=== PATIENT | female | born 1945 | race African-American/Black ===

== ENCOUNTER 2019-02-24 12:12 | Observation (INO) ==
[2019-02-24] MEDS ORDERED: amLODIPine 5 MG TABLET PO STA (12:58)
[2019-02-24 13:52] LABS: Basophils # 0.1 10*3/uL (0.0-0.2); Basophils % 0.8 % (0.0-0.8); Eosinophils # 0.2 10*3/uL (0.0-0.87); Eosinophils % 3.8 % (0.00-10.9); Hematocrit 43.2 VOL% (35.7-47.0); Hemoglobin 13.5 GM/DL (12.0-16.0); Immature Granulocytes % 0.2 %; Immature Granulocytes Absolute 0.01 #; Lymphocytes # 1.5 10*3/uL (1.4-4.0); Mean Corpuscular HGB Conc 31.3 GM/DL (32-36); Mean Corpuscular Volume 88.3 FL (87-102); Mean Platelet Volume 9.2 FL (9.6-12.0); Monocytes % 10.5 % (1.7-12.7); Neutrophils % 59.7 % (38.7-73.9); Platelet Count 288 T/CUMM (130-400); Red Blood Count 4.89 MC/CUMM (3.8-5.5); Red Cell Distribution Width 15.4 % (9.3-17.3); White Blood Count 6.1 T/CUMM (4-12)
[2019-02-24 14:15] LABS: Calcium 9.4 MG/DL (8.5-10.1); Osmolality,Calculated 276.4 MOS/KG (273-304)
[2019-02-24 14:27] LABS: Apearance,Urine CLEAR (Clear); Bilirubin,Urine Negative (Negative); Blood, Urine Small mg/dL (Negative); Glucose,Urine (UA) Negative (Negative); Ketones,Urine Negative (Negative); Nitrite,Urine Negative (Negative); Protein,Urine Negative; RBC,Urine 1 /HPF (0-4); Squamous Epithelial Cell,Urine Occasional /HPF (0-10); Urine Color Colorless (Yellow); Urine Specific Gravity 1.003 (1.001-1.035); Urine Urobilinogen < 2.0 EU/DL (0.2-1.0); WBC,Urine <1 /HPF (0-6)
[2019-02-24 14:55] LABS: Sedimentation Rate-Westergren 40 MM/HR (0-30)
[2019-02-24] MEDS ORDERED: LACTULOSE 20 GM/30 ML UDCUP PO PRN (16:46)
[2019-02-24] MEDS ORDERED: ONDANSETRON 4 MG/2 ML VIAL IV PRN (16:46)
[2019-02-24] MEDS ORDERED: ACETAMINOPHEN 325 MG TABLET PO PRN ×2 (16:46→17:03)
[2019-02-24] MEDS ORDERED: DOCUSATE SODIUM 100 MG CAPSULE PO PRN (16:46)
[2019-02-24 17:22] LABS: Risk Ratio 3.36; Thyroid Stimulating Hormone 0.674 uIU/ml (0.358-3.74); VLDL CHOLESTEROL 20.8 MG/DL
[2019-02-24] MEDS ORDERED: ENOXAPARIN 40 MG/0.4 ML SYRINGE SUBCUT SCH (17:30)
[2019-02-24] MEDS ORDERED: hydrALAZINE 20 MG/1 ML VIAL IV PRN (18:45)
[2019-02-24] MEDS: amLODIPine 5 MG TABLET PO SCH (21:04)
[2019-02-24 21:12] LABS: Troponin I 0.039 NG/ML (0.00-0.045)
[2019-02-25 06:04] LABS: Basophils # 0.1 10*3/uL (0.0-0.2); Basophils % 0.9 % (0.0-0.8); Eosinophils # 0.2 10*3/uL (0.0-0.87); Eosinophils % 3.7 % (0.00-10.9); Hematocrit 42.2 VOL% (35.7-47.0); Hemoglobin 13.4 GM/DL (12.0-16.0); Immature Granulocytes % 0.2 %; Immature Granulocytes Absolute 0.01 #; Lymphocytes % 31.2 % (21.3-54.2); Mean Corpuscular HGB Conc 31.8 GM/DL (32-36); Mean Corpuscular Volume 87.9 FL (87-102); Mean Platelet Volume 9.9 FL (9.6-12.0); Monocytes % 10.2 % (1.7-12.7); Neutrophils % 53.8 % (38.7-73.9); Platelet Count 298 T/CUMM (130-400); Red Cell Distribution Width 15.3 % (9.3-17.3); White Blood Count 6.4 T/CUMM (4-12)
[2019-02-25 06:16] LABS: Calcium 9.6 MG/DL (8.5-10.1); Osmolality,Calculated 282.1 MOS/KG (273-304)
[2019-02-25 06:20] LABS: Troponin I 0.025 NG/ML (0.00-0.045)
[2019-02-25] MEDS ORDERED: CHOLECALCIFEROL 400 UNIT TABLET PO SCH (09:00)
[2019-02-25] MEDS ORDERED: ASPIRIN EC 81 MG TABLET PO SCH (09:00)
[2019-02-25] MEDS ORDERED: TELMISARTAN 40 MG TABLET PO SCH ×2 (09:00→15:00)
[2019-02-25] MEDS ORDERED: PANTOPRAZOLE 40 MG TABLET PO SCH (09:00)
[2019-02-25] MEDS: amLODIPine 5 MG TABLET PO SCH (09:49)
[2019-02-25 17:04] VITALS: BP 154/71
== END 2019-02-25 16:55 | disposition home or self-care (01) ==
LOC: N.EDINP 12:12 → N.ED 12:12 → N.TELES 17:36
PROVIDERS: ADMIT Internal Medicine; ATTEND Internal Medicine

== ENCOUNTER 2020-09-18 00:46 | Observation (INO) ==
[2020-09-18 01:09] LABS: Basophils % 0.4 % (0.0-0.8); Eosinophils # 0.3 10*3/uL (0.0-0.87); Eosinophils % 3.3 % (0.00-10.9); Immature Granulocytes % 0.3 %; Immature Granulocytes Absolute 0.02 #; Lymphocytes # 2.4 10*3/uL (1.4-4.0); Lymphocytes % 30.9 % (21.3-54.2); Mean Corpuscular HGB Conc 33.3 GM/DL (32-36); Mean Corpuscular Volume 86.1 FL (87-102); Mean Platelet Volume 8.7 FL (9.6-12.0); Monocytes % 13.2 % (1.7-12.7); Neutrophils % 51.9 % (38.7-73.9); Platelet Count 276 T/CUMM (130-400); Red Blood Count 4.53 MC/CUMM (3.8-5.5); Red Cell Distribution Width 14.4 % (9.3-17.3); White Blood Count 7.7 T/CUMM (4-12)
[2020-09-18 01:35] LABS: Albumin 3.7 G/DL (3.4-5.0); Bilirubin,Total 0.6 MG/DL (0.2-1.0); Calcium 9.8 MG/DL (8.5-10.1); Total Protein 7.5 G/DL (6.4-8.3)
[2020-09-18] MEDS ORDERED: NITROGLYCERIN 2% OINT 1 INCH/GM PACK TOP STA (01:46)
[2020-09-18] MEDS ORDERED: ONDANSETRON 4 MG/2 ML VIAL IV STA (01:46)
[2020-09-18] MEDS ORDERED: ASPIRIN 325 MG TABLET PO STA (01:46)
[2020-09-18] MEDS ORDERED: ALUM/MAG/SIMETH/LIDO VISC 1:1 30 ML BOTTLE PO STA (01:46)
[2020-09-18] MEDS ORDERED: MORPHINE 4 MG/1 ML VIAL IV STA (01:46)
[2020-09-18 02:34] LABS: PT Patient Result 10.5 SECS (9.8-11.9)
[2020-09-18] MEDS ORDERED: SODIUM CHLORIDE 0.9% 1,000 ML IV STA (03:18)
[2020-09-18] MEDS ORDERED: SODIUM BICARBONATE 50 MEQ/50 ML VIAL IV STA (03:18)
[2020-09-18] MEDS ORDERED: ENOXAPARIN 100 MG/ML SYRINGE SUBCUT STA (05:08)
[2020-09-18] MEDS ORDERED: MORPHINE 4 MG/1 ML VIAL IV PRN (05:09)
[2020-09-18] MEDS ORDERED: DEXTROSE 50% 25 GM/50 ML VIAL IV PRN (05:09)
[2020-09-18] MEDS ORDERED: GLUCAGON 1 MG VIAL IM PRN (05:09)
[2020-09-18] MEDS ORDERED: DEXTROSE 50% 25 GM/50 ML SYRINGE IV PRN (05:24)
[2020-09-18 09:35] LABS: Risk Ratio 2.47; VLDL CHOLESTEROL 8.6 MG/DL
[2020-09-18] MEDS: PANTOPRAZOLE 40 MG TABLET PO SCH (09:55)
[2020-09-18] MEDS ORDERED: ENOXAPARIN 100 MG/ML SYRINGE SUBCUT SCH (17:00)
[2020-09-18] MEDS: ESCITALOPRAM 10 MG TABLET PO SCH (20:33)
[2020-09-19] MEDS ORDERED: hydrALAZINE 20 MG/1 ML VIAL IV ONE (00:10)
[2020-09-19] MEDS: ONDANSETRON 4 MG/2 ML VIAL IV PRN ×2 (01:29→18:56)
[2020-09-19] MEDS ORDERED: cloNIDine 0.2 MG/24 HR PATCH TRANSDERM PRN (03:55)
[2020-09-19 05:37] LABS: Basophils # 0.1 10*3/uL (0.0-0.2); Eosinophils # 0.1 10*3/uL (0.0-0.87); Hematocrit 35.7 VOL% (35.7-47.0); Hemoglobin 11.7 GM/DL (12.0-16.0); Immature Granulocytes % 0.1 %; Immature Granulocytes Absolute 0.01 #; Lymphocytes % 13.8 % (21.3-54.2); Mean Corpuscular HGB Conc 32.8 GM/DL (32-36); Mean Corpuscular Volume 85.4 FL (87-102); Mean Platelet Volume 9.1 FL (9.6-12.0); Monocytes % 9.7 % (1.7-12.7); Neutrophils % 74.4 % (38.7-73.9); Platelet Count 255 T/CUMM (130-400); Red Blood Count 4.18 MC/CUMM (3.8-5.5); Red Cell Distribution Width 14.5 % (9.3-17.3); White Blood Count 7.1 T/CUMM (4-12)
[2020-09-19 05:49] LABS: Calcium 9.1 MG/DL (8.5-10.1); Osmolality,Calculated 275.8 MOS/KG (273-304)
[2020-09-19] MEDS: PANTOPRAZOLE 40 MG TABLET PO SCH (10:05)
[2020-09-19] MEDS: SIMVASTATIN 10 MG TABLET PO SCH (10:05)
[2020-09-19] MEDS: ASPIRIN EC 81 MG TABLET PO SCH (10:05)
[2020-09-19] MEDS: minoxidiL 2.5 MG TABLET PO SCH (10:05)
[2020-09-19] MEDS: ENOXAPARIN 40 MG/0.4 ML SYRINGE SUBCUT SCH (10:05)
[2020-09-19] MEDS: ESCITALOPRAM 10 MG TABLET PO SCH (21:09)
[2020-09-20 06:57] LABS: Basophils # 0.1 10*3/uL (0.0-0.2); Basophils % 0.9 % (0.0-0.8); Eosinophils # 0.1 10*3/uL (0.0-0.87); Eosinophils % 1.9 % (0.00-10.9); Hematocrit 33.8 VOL% (35.7-47.0); Hemoglobin 11.4 GM/DL (12.0-16.0); Immature Granulocytes % 0.3 %; Immature Granulocytes Absolute 0.02 #; Lymphocytes # 1.3 10*3/uL (1.4-4.0); Lymphocytes % 18.5 % (21.3-54.2); Mean Corpuscular HGB Conc 33.7 GM/DL (32-36); Mean Corpuscular Volume 86.2 FL (87-102); Mean Platelet Volume 9.5 FL (9.6-12.0); Monocytes % 11.2 % (1.7-12.7); Neutrophils % 67.2 % (38.7-73.9); Platelet Count 267 T/CUMM (130-400); Red Blood Count 3.92 MC/CUMM (3.8-5.5); Red Cell Distribution Width 14.9 % (9.3-17.3); White Blood Count 6.9 T/CUMM (4-12)
[2020-09-20 07:28] LABS: Osmolality,Calculated 269.2 MOS/KG (273-304)
[2020-09-20 08:00] VITALS: BP 145/49
[2020-09-20] MEDS ORDERED: LACTULOSE 20 GM/30 ML UDCUP PO ONE (08:02)
[2020-09-20] MEDS ORDERED: ACETAMINOPHEN 325 MG TABLET PO PRN (08:04)
[2020-09-20] MEDS: ASPIRIN EC 81 MG TABLET PO SCH (08:44)
[2020-09-20] MEDS: SIMVASTATIN 10 MG TABLET PO SCH (08:45)
[2020-09-20] MEDS: PANTOPRAZOLE 40 MG TABLET PO SCH (08:45)
[2020-09-20] MEDS: minoxidiL 2.5 MG TABLET PO SCH (08:45)
[2020-09-20] MEDS: ENOXAPARIN 40 MG/0.4 ML SYRINGE SUBCUT SCH (08:46)
== END 2020-09-20 11:38 | disposition home or self-care (01) ==
LOC: N.EDINP 00:46 → N.ED 00:46 → N.EDINP 12:16 → N.TELEN 12:31
PROVIDERS: ADMIT Internal Medicine; ATTEND Internal Medicine

== ENCOUNTER 2021-03-20 07:56 | Observation (INO) ==
[2021-03-20 08:46] LABS: Basophils # 0.1 10*3/uL (0.0-0.2); Eosinophils # 0.2 10*3/uL (0.0-0.87); Eosinophils % 2.6 % (0.00-10.9); Hematocrit 43.8 VOL% (35.7-47.0); Hemoglobin 14.4 GM/DL (12.0-16.0); Immature Granulocytes % 0.2 %; Immature Granulocytes Absolute 0.01 #; Lymphocytes # 1.7 10*3/uL (1.4-4.0); Lymphocytes % 27.5 % (21.3-54.2); Mean Corpuscular HGB Conc 32.9 GM/DL (32-36); Mean Corpuscular Volume 84.6 FL (87-102); Mean Platelet Volume 9.6 FL (9.6-12.0); Monocytes % 10.4 % (1.7-12.7); Neutrophils % 58.3 % (38.7-73.9); Platelet Count 321 T/CUMM (130-400); Red Blood Count 5.18 MC/CUMM (3.8-5.5); Red Cell Distribution Width 16.2 % (9.3-17.3); White Blood Count 6.2 T/CUMM (4-12)
[2021-03-20] MEDS ORDERED: ASPIRIN CHEW 81 MG TABLET PO STA (08:48)
[2021-03-20] MEDS ORDERED: ONDANSETRON 4 MG/2 ML VIAL IV STA (08:48)
[2021-03-20] MEDS ORDERED: MORPHINE 4 MG/1 ML VIAL IV STA (08:48)
[2021-03-20] MEDS ORDERED: hydrALAZINE 20 MG/1 ML VIAL IV STA (08:49)
[2021-03-20 09:02] LABS: Albumin 3.5 G/DL (3.4-5.0); Bilirubin,Total 0.6 MG/DL (0.2-1.0); Calcium 9.8 MG/DL (8.5-10.1); Osmolality,Calculated 282.3 MOS/KG (273-304); Potassium 3.6 MMOL/L (3.5-5.1); Total Protein 7.7 G/DL (6.4-8.2)
[2021-03-20 09:58] LABS: INR 1.7; PT Patient Result 18.5 SECS (10.5-12.0); Partial Thromboplastin Time 32.4 SECS (23.9-33.8)
[2021-03-20] MEDS ORDERED: hydrALAZINE 20 MG/1 ML VIAL IV ONE (11:08)
[2021-03-20] MEDS ORDERED: niCARdipine INJ 25 MG in SODIUM CHLORIDE 0.9% 240 ML IV PRN (11:13)
[2021-03-20] MEDS ORDERED: MORPHINE 4 MG/1 ML VIAL IV PRN (15:30)
[2021-03-20] MEDS ORDERED: DEXTROSE 50% 25 GM/50 ML VIAL IV PRN (15:30)
[2021-03-20] MEDS ORDERED: GLUCAGON 1 MG VIAL IM PRN (15:30)
[2021-03-20 16:10] LABS: Thyroid Stimulating Hormone 1.15 uIU/ml (0.358-3.74); VLDL CHOLESTEROL 14.6 MG/DL
[2021-03-20] MEDS: hydrALAZINE 20 MG/1 ML VIAL IV PRN (16:58)
[2021-03-20] MEDS: ACETAMINOPHEN 325 MG TABLET PO PRN (16:58)
[2021-03-20] MEDS: ENOXAPARIN 40 MG/0.4 ML SYRINGE SUBCUT SCH (17:04)
[2021-03-20] MEDS: ONDANSETRON 4 MG/2 ML VIAL IV PRN (17:56)
[2021-03-20] MEDS: ESCITALOPRAM 10 MG TABLET PO SCH (21:28)
[2021-03-21 05:21] LABS: Basophils % 0.5 % (0.0-0.8); Hematocrit 42.7 VOL% (35.7-47.0); Hemoglobin 13.5 GM/DL (12.0-16.0); Immature Granulocytes % 0.4 %; Immature Granulocytes Absolute 0.03 #; Lymphocytes # 0.9 10*3/uL (1.4-4.0); Lymphocytes % 12.6 % (21.3-54.2); Mean Corpuscular HGB Conc 31.6 GM/DL (32-36); Mean Corpuscular Volume 86.8 FL (87-102); Mean Platelet Volume 9.4 FL (9.6-12.0); Monocytes % 5.4 % (1.7-12.7); Neutrophils % 81.1 % (38.7-73.9); Platelet Count 320 T/CUMM (130-400); Red Blood Count 4.92 MC/CUMM (3.8-5.5); Red Cell Distribution Width 16.4 % (9.3-17.3); White Blood Count 7.5 T/CUMM (4-12)
[2021-03-21 05:36] LABS: Calcium 9.3 MG/DL (8.5-10.1); Osmolality,Calculated 281.3 MOS/KG (273-304); Potassium 3.6 MMOL/L (3.5-5.1)
[2021-03-21] MEDS: ONDANSETRON 4 MG/2 ML VIAL IV PRN (07:22)
[2021-03-21] MEDS: hydrALAZINE 20 MG/1 ML VIAL IV PRN (07:24)
[2021-03-21] MEDS ORDERED: PROMETHAZINE 25 MG TABLET PO PRN (08:53)
[2021-03-21] MEDS ORDERED: cloNIDine 0.2 MG/24 HR PATCH TRANSDERM SCH (09:00)
[2021-03-21] MEDS ORDERED: SIMVASTATIN 10 MG TABLET PO SCH (09:00)
[2021-03-21] MEDS: CHOLECALCIFEROL 5,000 UNIT TABLET PO SCH (10:09)
[2021-03-21] MEDS: PANTOPRAZOLE 40 MG TABLET PO SCH (10:09)
[2021-03-21] MEDS: ASPIRIN EC 81 MG TABLET PO SCH (10:10)
[2021-03-21] MEDS: minoxidiL 2.5 MG TABLET PO SCH (10:10)
[2021-03-21] MEDS: ACETAMINOPHEN 325 MG TABLET PO PRN (10:12)
[2021-03-21] MEDS ORDERED: MAGNESIUM HYDROXIDE SUSP 30 ML UDCUP PO PRN (13:54)
[2021-03-21] MEDS: ENOXAPARIN 40 MG/0.4 ML SYRINGE SUBCUT SCH (15:43)
[2021-03-21] MEDS: hydrALAZINE 25 MG TABLET PO SCH ×2 (15:43→21:13)
[2021-03-21] MEDS: POLYETHYLENE GLYCOL POWDER 17 GM PACK PO SCH (15:43)
[2021-03-21] MEDS: ESCITALOPRAM 10 MG TABLET PO SCH (21:13)
[2021-03-22 06:02] LABS: Basophils % 0.4 % (0.0-0.8); Eosinophils % 0.4 % (0.00-10.9); Hematocrit 40.9 VOL% (35.7-47.0); Hemoglobin 13.7 GM/DL (12.0-16.0); Immature Granulocytes % 0.3 %; Immature Granulocytes Absolute 0.02 #; Lymphocytes # 1.3 10*3/uL (1.4-4.0); Lymphocytes % 16.6 % (21.3-54.2); Mean Corpuscular HGB Conc 33.5 GM/DL (32-36); Mean Corpuscular Volume 83.5 FL (87-102); Mean Platelet Volume 9.7 FL (9.6-12.0); Monocytes % 8.2 % (1.7-12.7); Neutrophils % 74.1 % (38.7-73.9); Platelet Count 314 T/CUMM (130-400); Red Cell Distribution Width 16.4 % (9.3-17.3); White Blood Count 7.7 T/CUMM (4-12)
[2021-03-22 06:15] LABS: Potassium 3.6 MMOL/L (3.5-5.1)
[2021-03-22] MEDS: POLYETHYLENE GLYCOL POWDER 17 GM PACK PO SCH (10:08)
[2021-03-22] MEDS: PANTOPRAZOLE 40 MG TABLET PO SCH (10:08)
[2021-03-22] MEDS: ASPIRIN EC 81 MG TABLET PO SCH (10:09)
[2021-03-22] MEDS: hydrALAZINE 25 MG TABLET PO SCH (10:09)
[2021-03-22] MEDS: SIMVASTATIN 20 MG TABLET PO SCH (10:09)
[2021-03-22] MEDS: CHOLECALCIFEROL 5,000 UNIT TABLET PO SCH (10:09)
[2021-03-22] MEDS: minoxidiL 2.5 MG TABLET PO SCH (10:09)
[2021-03-22] MEDS ORDERED: MAGNESIUM SULF RIDER 2 GM/50 ML PREMIX IV PRN (11:57)
[2021-03-22] MEDS ORDERED: POTASSIUM CHLORIDE RIDER 10 MEQ/100 ML PREMIX IV PRN (11:57)
[2021-03-22] MEDS ORDERED: LIDOCAINE 1% 20 ML VIAL ONE (12:36)
[2021-03-22] MEDS ORDERED: HEPARIN/NACL 0.9% 2 UNITS/ML 2,000 UNIT/1,000 ML BAG IV ONE (12:36)
[2021-03-22] MEDS ORDERED: DIAZEPAM 5 MG TABLET PO ONE (13:00)
[2021-03-22] MEDS ORDERED: diphenhydrAMINE CAP 50 MG CAPSULE PO ONE (13:00)
[2021-03-22] MEDS: SODIUM CHLORIDE 0.9% 1,000 ML IV SCH ×2 (13:11→21:08)
[2021-03-22] MEDS ORDERED: MIDAZOLAM 2 MG/2 ML VIAL ONE (13:16)
[2021-03-22] MEDS ORDERED: HYDROmorphone 2 MG/1 ML VIAL ONE (13:16)
[2021-03-22] MEDS ORDERED: VERAPAMIL 5 MG/2 ML VIAL ONE (13:17)
[2021-03-22] MEDS ORDERED: ENOXAPARIN 30 MG/0.3 ML SYRINGE ONE (13:19)
[2021-03-22] MEDS ORDERED: DEXTROSE 50% 25 GM/50 ML VIAL IV PRN (13:37)
[2021-03-22] MEDS: ENOXAPARIN 40 MG/0.4 ML SYRINGE SUBCUT SCH (15:23)
[2021-03-22] MEDS: ACETAMINOPHEN 325 MG TABLET PO PRN (18:14)
[2021-03-22] MEDS: ESCITALOPRAM 10 MG TABLET PO SCH (21:05)
[2021-03-23 05:50] LABS: Basophils % 0.6 % (0.0-0.8); Eosinophils # 0.1 10*3/uL (0.0-0.87); Eosinophils % 0.7 % (0.00-10.9); Hematocrit 41.7 VOL% (35.7-47.0); Hemoglobin 13.6 GM/DL (12.0-16.0); Immature Granulocytes % 0.3 %; Immature Granulocytes Absolute 0.02 #; Lymphocytes % 14.1 % (21.3-54.2); Mean Corpuscular HGB Conc 32.6 GM/DL (32-36); Mean Corpuscular Volume 84.6 FL (87-102); Mean Platelet Volume 10.4 FL (9.6-12.0); Monocytes % 11.4 % (1.7-12.7); Neutrophils % 72.9 % (38.7-73.9); Platelet Count 283 T/CUMM (130-400); Red Blood Count 4.93 MC/CUMM (3.8-5.5); Red Cell Distribution Width 16.8 % (9.3-17.3); White Blood Count 7.2 T/CUMM (4-12)
[2021-03-23 06:20] LABS: Calcium 9.2 MG/DL (8.5-10.1); Osmolality,Calculated 277.7 MOS/KG (273-304); Potassium 3.8 MMOL/L (3.5-5.1)
[2021-03-23] MEDS: SODIUM CHLORIDE 0.9% 1,000 ML IV SCH ×2 (07:38→12:10)
[2021-03-23] MEDS: ASPIRIN EC 81 MG TABLET PO SCH (09:11)
[2021-03-23] MEDS: CHOLECALCIFEROL 5,000 UNIT TABLET PO SCH (09:11)
[2021-03-23] MEDS: minoxidiL 2.5 MG TABLET PO SCH (09:11)
[2021-03-23] MEDS: POLYETHYLENE GLYCOL POWDER 17 GM PACK PO SCH (09:11)
[2021-03-23] MEDS: PANTOPRAZOLE 40 MG TABLET PO SCH (09:12)
[2021-03-23] MEDS: SIMVASTATIN 20 MG TABLET PO SCH (09:12)
[2021-03-23 12:01] VITALS: BP 142/67
== END 2021-03-23 14:20 | disposition home or self-care (01) ==
LOC: N.EDINP 07:56 → N.ED 07:56 → SUATTDRO 11:19 → N.TELEN 15:51
PROVIDERS: ADMIT Internal Medicine; ATTEND Internal Medicine
PROC: CLCCHCL (ICD-10-PCS; 2021-03-22 14:15)

== ENCOUNTER 2021-06-12 09:39 | Observation (INO) ==
[2021-06-12 11:54] LABS: Basophils % 0.6 % (0.0-0.8); Eosinophils # 0.2 10*3/uL (0.0-0.87); Eosinophils % 3.3 % (0.00-10.9); Hematocrit 42.7 VOL% (35.7-47.0); Hemoglobin 13.5 GM/DL (12.0-16.0); Immature Granulocytes % 0.3 %; Immature Granulocytes Absolute 0.02 #; Lymphocytes # 1.6 10*3/uL (1.4-4.0); Lymphocytes % 25.5 % (21.3-54.2); Mean Corpuscular HGB Conc 31.6 GM/DL (32-36); Mean Corpuscular Volume 88.2 FL (87-102); Mean Platelet Volume 9.4 FL (9.6-12.0); Monocytes % 9.1 % (1.7-12.7); Neutrophils % 61.2 % (38.7-73.9); Platelet Count 270 T/CUMM (130-400); Red Blood Count 4.84 MC/CUMM (3.8-5.5); Red Cell Distribution Width 16.1 % (9.3-17.3); White Blood Count 6.3 T/CUMM (4-12)
[2021-06-12 12:29] LABS: Albumin 3.5 G/DL (3.4-5.0); Bilirubin,Total 1.2 MG/DL (0.20-1.00); Calcium 9.4 MG/DL (8.5-10.1); Osmolality,Calculated 282.1 MOS/KG (273-304); Potassium 4.5 MMOL/L (3.5-5.1); Total Protein 7.7 G/DL (6.4-8.2)
[2021-06-12] MEDS ORDERED: hydrALAZINE 20 MG/1 ML VIAL IV STA (12:37)
[2021-06-12] MEDS ORDERED: cloNIDine 0.2 MG/24 HR PATCH TRANSDERM STA (13:44)
[2021-06-12] MEDS ORDERED: GLUCAGON 1 MG VIAL IM PRN (13:46)
[2021-06-12] MEDS ORDERED: DEXTROSE 50% 25 GM/50 ML VIAL IV PRN (13:46)
[2021-06-12] MEDS ORDERED: MORPHINE 2 MG/1 ML SYRINGE IV PRN (13:48)
[2021-06-12] MEDS ORDERED: ONDANSETRON 4 MG/2 ML VIAL IV PRN (13:48)
[2021-06-12] MEDS ORDERED: ACETAMINOPHEN 325 MG TABLET PO PRN (13:48)
[2021-06-12] MEDS ORDERED: hydrALAZINE 20 MG/1 ML VIAL IV PRN ×2 (13:48→17:56)
[2021-06-12 14:37] LABS: Thyroid Stimulating Hormone 0.601 uIU/ml (0.358-3.74)
[2021-06-12 14:57] LABS: Risk Ratio 2.55
[2021-06-12] MEDS ORDERED: DOXAZOSIN 1 MG TABLET PO ONE (15:41)
[2021-06-12] MEDS: ENOXAPARIN 40 MG/0.4 ML SYRINGE SUBCUT SCH (17:50)
[2021-06-12] MEDS: SIMVASTATIN 10 MG TABLET PO SCH (20:23)
[2021-06-12] MEDS ORDERED: DOXAZOSIN 1 MG TABLET PO SCH (21:00)
[2021-06-13 07:15] LABS: Basophils % 0.6 % (0.0-0.8); Eosinophils % 0.4 % (0.00-10.9); Hematocrit 37.3 VOL% (35.7-47.0); Hemoglobin 11.7 GM/DL (12.0-16.0); Immature Granulocytes % 0.1 %; Immature Granulocytes Absolute 0.01 #; Lymphocytes # 1.2 10*3/uL (1.4-4.0); Lymphocytes % 17.3 % (21.3-54.2); Mean Corpuscular HGB Conc 31.4 GM/DL (32-36); Mean Corpuscular Volume 88.2 FL (87-102); Mean Platelet Volume 9.7 FL (9.6-12.0); Monocytes % 8.2 % (1.7-12.7); Neutrophils % 73.4 % (38.7-73.9); Platelet Count 293 T/CUMM (130-400); Red Blood Count 4.23 MC/CUMM (3.8-5.5); Red Cell Distribution Width 16.3 % (9.3-17.3)
[2021-06-13 07:55] LABS: Calcium 8.9 MG/DL (8.5-10.1); Potassium 3.7 MMOL/L (3.5-5.1)
[2021-06-13] MEDS: ASPIRIN EC 81 MG TABLET PO SCH (09:20)
[2021-06-13] MEDS: LOSARTAN 50 MG TABLET PO SCH (09:20)
[2021-06-13] MEDS: PANTOPRAZOLE 40 MG TABLET PO SCH (09:20)
[2021-06-13] MEDS ORDERED: DOXAZOSIN 4 MG TABLET PO ONE (10:00)
[2021-06-13] MEDS: ENOXAPARIN 40 MG/0.4 ML SYRINGE SUBCUT SCH (14:09)
[2021-06-13] MEDS ORDERED: NIFEdipine 10 MG CAPSULE PO ONE (15:29)
[2021-06-13] MEDS: SIMVASTATIN 10 MG TABLET PO SCH (20:52)
[2021-06-13] MEDS ORDERED: DOXAZOSIN 2 MG TABLET PO SCH (21:00)
[2021-06-13] MEDS ORDERED: DOXAZOSIN 4 MG TABLET PO SCH (21:00)
[2021-06-13] MEDS: DOXAZOSIN 1 MG TABLET PO SCH (22:27)
[2021-06-14 07:04] LABS: Basophils # 0.1 10*3/uL (0.0-0.2); Eosinophils # 0.3 10*3/uL (0.0-0.87); Eosinophils % 5.3 % (0.00-10.9); Hematocrit 37.3 VOL% (35.7-47.0); Immature Granulocytes % 0.2 %; Immature Granulocytes Absolute 0.01 #; Lymphocytes # 1.6 10*3/uL (1.4-4.0); Lymphocytes % 26.8 % (21.3-54.2); Mean Corpuscular HGB Conc 32.2 GM/DL (32-36); Mean Corpuscular Volume 88.2 FL (87-102); Mean Platelet Volume 9.6 FL (9.6-12.0); Monocytes % 9.9 % (1.7-12.7); Neutrophils % 56.8 % (38.7-73.9); Platelet Count 290 T/CUMM (130-400); Red Blood Count 4.23 MC/CUMM (3.8-5.5); Red Cell Distribution Width 16.3 % (9.3-17.3); White Blood Count 5.8 T/CUMM (4-12)
[2021-06-14 07:22] LABS: Osmolality,Calculated 279.4 MOS/KG (273-304); Potassium 3.7 MMOL/L (3.5-5.1)
[2021-06-14 08:23] VITALS: BP 161/79
[2021-06-14] MEDS: ASPIRIN EC 81 MG TABLET PO SCH (09:31)
[2021-06-14] MEDS: PANTOPRAZOLE 40 MG TABLET PO SCH (09:31)
[2021-06-14] MEDS: LOSARTAN 50 MG TABLET PO SCH (09:31)
[2021-06-14] MEDS: DOXAZOSIN 1 MG TABLET PO SCH (09:31)
== END 2021-06-14 12:48 | disposition home or self-care (01) ==
LOC: N.EDINP 09:39 → N.ED 09:39 → N.EDINP 18:04 → N.TELEN 18:11
PROVIDERS: ADMIT Hospitalist; ATTEND Hospitalist

== ENCOUNTER 2022-06-25 08:59 | Observation (INO) ==
[2022-06-25] MEDS ORDERED: NITROGLYCERIN SL 0.4 MG TABLET SL ONE (09:53)
[2022-06-25] MEDS ORDERED: ASPIRIN 325 MG TABLET ONE (09:53)
[2022-06-25] MEDS ORDERED: ENOXAPARIN 100 MG/ML SYRINGE SUBCUT STA (09:54)
[2022-06-25] MEDS ORDERED: NITROGLYCERIN SL 0.4 MG TABLET SL PRN (09:54)
[2022-06-25] MEDS ORDERED: ASPIRIN 325 MG TABLET PO STA (09:54)
[2022-06-25 10:36] LABS: PT Patient Result 10.9 SECS (10.1-12.1)
[2022-06-25 10:46] LABS: Albumin 3.8 G/DL (3.4-5.0); Bilirubin,Total 0.7 MG/DL (0.20-1.00); Calcium 10.1 MG/DL (8.5-10.1); Osmolality,Calculated 270.1 MOS/KG (273-304); Potassium 3.8 MMOL/L (3.5-5.1); Total Protein 7.7 G/DL (6.4-8.2)
[2022-06-25 11:11] LABS: Basophils # 0.1 10*3/uL (0.0-0.2); Basophils % 0.8 % (0.0-0.8); Eosinophils # 0.1 10*3/uL (0.0-0.87); Eosinophils % 1.3 % (0.00-10.9); Hematocrit 42.3 VOL% (35.7-47.0); Hemoglobin 13.9 GM/DL (12.0-16.0); Immature Granulocytes % 0.3 %; Immature Granulocytes Absolute 0.02 #; Lymphocytes # 1.1 10*3/uL (1.4-4.0); Lymphocytes % 18.2 % (21.3-54.2); Mean Corpuscular HGB Conc 32.9 GM/DL (32-36); Mean Corpuscular Volume 85.1 FL (87-102); Mean Platelet Volume 8.6 FL (9.6-12.0); Monocytes # 0.5 10*3/uL (0.11-0.8); Monocytes % 8.4 % (1.7-12.7); Platelet Count 316 T/CUMM (130-400); Red Blood Count 4.97 MC/CUMM (3.8-5.5); Red Cell Distribution Width 16.4 % (9.3-17.3); White Blood Count 6.1 T/CUMM (4-12)
[2022-06-25] MEDS ORDERED: ONDANSETRON 4 MG/2 ML VIAL IV PRN (11:32)
[2022-06-25] MEDS ORDERED: ACETAMINOPHEN 325 MG TABLET PO PRN (11:32)
[2022-06-25] MEDS ORDERED: DEXTROSE 10% 250 ML BAG IV PRN (11:32)
[2022-06-25] MEDS ORDERED: GLUCAGON 1 MG VIAL IM PRN (11:32)
[2022-06-25] MEDS ORDERED: ASPIRIN EC 81 MG TABLET PO PRN (11:56)
[2022-06-25] MEDS ORDERED: MORPHINE 2 MG/1 ML SYRINGE IV STA (11:56)
[2022-06-25] MEDS ORDERED: LOSARTAN 50 MG TABLET PO SCH (12:00)
[2022-06-25] MEDS ORDERED: ENOXAPARIN 40 MG/0.4 ML SYRINGE SUBCUT SCH (12:00)
[2022-06-25] MEDS ORDERED: SIMVASTATIN 10 MG TABLET PO SCH (21:00)
[2022-06-26 05:34] LABS: Basophils # 0.1 10*3/uL (0.0-0.2); Basophils % 0.9 % (0.0-0.8); Eosinophils # 0.1 10*3/uL (0.0-0.87); Eosinophils % 2.2 % (0.00-10.9); Hematocrit 39.3 VOL% (35.7-47.0); Hemoglobin 12.7 GM/DL (12.0-16.0); Immature Granulocytes % 0.2 %; Immature Granulocytes Absolute 0.01 #; Lymphocytes # 1.6 10*3/uL (1.4-4.0); Lymphocytes % 24.3 % (21.3-54.2); Mean Corpuscular HGB Conc 32.3 GM/DL (32-36); Mean Corpuscular Volume 87.1 FL (87-102); Mean Platelet Volume 8.8 FL (9.6-12.0); Monocytes # 0.8 10*3/uL (0.11-0.8); Monocytes % 11.6 % (1.7-12.7); Neutrophils % 60.8 % (38.7-73.9); Platelet Count 310 T/CUMM (130-400); Red Blood Count 4.51 MC/CUMM (3.8-5.5); Red Cell Distribution Width 16.5 % (9.3-17.3); White Blood Count 6.5 T/CUMM (4-12)
[2022-06-26 06:11] LABS: Albumin 3.4 G/DL (3.4-5.0); Bilirubin,Total 0.6 MG/DL (0.20-1.00); Calcium 9.8 MG/DL (8.5-10.1); Osmolality,Calculated 279.4 MOS/KG (273-304); Potassium 3.8 MMOL/L (3.5-5.1); Risk Ratio 2.67; Thyroid Stimulating Hormone 1.61 uIU/ml (0.358-3.74); Total Protein 6.6 G/DL (6.4-8.2); VLDL Cholesterol 12.2 MG/DL
[2022-06-26] MEDS ORDERED: PANTOPRAZOLE 40 MG TABLET PO SCH (09:00)
[2022-06-26] MEDS ORDERED: CHOLECALCIFEROL 5,000 UNIT TABLET PO SCH (09:00)
[2022-06-26] MEDS ORDERED: LOSARTAN 25 MG TABLET PO SCH (09:00)
[2022-06-26 10:01] VITALS: BP 132/66
[2022-06-30] MEDS ORDERED: cloNIDine 0.2 MG/24 HR PATCH TRANSDERM SCH (11:56)
== END 2022-06-26 10:38 | disposition home or self-care (01) ==
LOC: N.EDINP 08:59 → N.ED 08:59 → SUATTDRO 11:32 → N.EDINP 06-26 10:39
PROVIDERS: ADMIT Internal Medicine; ATTEND Internal Medicine